=== PATIENT | female | born 1940 | race Caucasian/White ===

== ENCOUNTER → 2016-11-24 | Outpatient (CLI) | payer OTHER ==
[~2016-11-24] MED LIST: PROTONIX40 MG PO; ZOFRAN ODT8 MG PO
[2016-11-24 19:56] LABS: BASO # 0.1 10*3/uL (0.0-0.1); BASO % 0.6 % (0.0-1.0); EOS # 0.3 10*3/uL (0.0-0.4); EOS % 3.5 % (1.0-4.0); HEMATOCRIT 41.5 % (37.0-47.0); HEMOGLOBIN 13.4 g/dl (12.0-16.0); LYMPH # 3.4 10*3/uL (1.3-4.4); LYMPH % 38.5 % (27.0-41.0); MEAN CELL VOLUME 91.4 fl (81.0-99.0); MEAN CORPUSCULAR HGB 29.5 pg (27.0-31.0); MEAN CORPUSCULAR HGB CONC 32.3 g/dl (33.0-37.0); MEAN PLATELET VOLUME 9.3 fl (9.6-12.3); MONO # 0.7 10*3/uL (0.1-1.0); MONO % 7.4 % (3.0-9.0); NEUT # 4.4 10*3/uL (2.3-7.9); NEUT % 49.7 % (47.0-73.0); PLATELET COUNT AUTOMATED 285 10*3/uL (130-400); RED BLOOD COUNT 4.54 10*6/uL (4.10-5.10); RED CELL DISTRI WIDTH 13.7 % (0-14.5); WHITE BLOOD COUNT 8.8 10*3/uL (4.8-10.8)
[2016-11-24 20:18] LABS: ALBUMIN 3.5 gm/dl (3.1-4.5); BILIRUBIN, TOTAL 0.3 mg/dl (0.2-1.0); FREE T4 0.71 ng/dl (0.76-1.46); POTASSIUM 4.2 mmol/L (3.5-5.1); TOTAL PROTEIN 6.5 gm/dL (6.4-8.2)
[2016-11-24 20:24] LABS: THYROID STIM HORMONE (HS) 3.19 uIU/ml (0.358-4.75)
== END | disposition home or self-care (01) ==
LOC: LAB 18:52 → US 18:52
PROVIDERS: Internal Medicine
DX: R60.0 Localized edema (principal); E55.9 Vitamin D deficiency, unspecified; E03.9 Hypothyroidism, unspecified

== ENCOUNTER → 2016-12-07 | Outpatient (CLI) | payer MEDICARE, OTHER | END | disposition home or self-care (01) | LOC: CARD 07:30 | DX: I35.1 Nonrheumatic aortic (valve) insufficiency (principal); I34.0 Nonrheumatic mitral (valve) insufficiency; I07.1 Rheumatic tricuspid insufficiency; I51.7 Cardiomegaly; R60.0 Localized edema ==

== ENCOUNTER → 2017-03-10 | Outpatient (CLI) | payer OTHER | END | disposition home or self-care (01) | LOC: LAB 12:05 | PROVIDERS: Thoracic Surgery (Cardiothoracic Vascular Surgery) | DX: I71.2 Thoracic aortic aneurysm, without rupture (principal) ==

== ENCOUNTER → 2017-03-22 | Outpatient (CLI) | payer OTHER ==
[2017-03-22 12:14] LABS: VITAMIN D, 25-HYDROXY 38.5 ng/mL (30-100)
== END | disposition home or self-care (01) ==
LOC: LAB 10:59
PROVIDERS: Psychiatry & Neurology Neurology
DX: E55.9 Vitamin D deficiency, unspecified (principal)

== ENCOUNTER → 2017-05-19 | Outpatient (CLI) | payer OTHER ==
[2017-05-19 12:45] LABS: BASO # 0.1 10*3/uL (0.0-0.1); BASO % 0.6 % (0.0-1.0); EOS # 0.1 10*3/uL (0.0-0.4); EOS % 1.3 % (1.0-4.0); HEMATOCRIT 41.6 % (37.0-47.0); HEMOGLOBIN 13.2 g/dl (12.0-16.0); MEAN CELL VOLUME 93.5 fl (81.0-99.0); MEAN CORPUSCULAR HGB 29.7 pg (27.0-31.0); MEAN CORPUSCULAR HGB CONC 31.7 g/dl (33.0-37.0); MEAN PLATELET VOLUME 9.4 fl (9.6-12.3); MONO # 0.6 10*3/uL (0.1-1.0); MONO % 6.9 % (3.0-9.0); NEUT # 5.2 10*3/uL (2.3-7.9); NEUT % 57.9 % (47.0-73.0); PLATELET COUNT AUTOMATED 274 10*3/uL (130-400); RED BLOOD COUNT 4.45 10*6/uL (4.10-5.10); RED CELL DISTRI WIDTH 13.4 % (0-14.5); WHITE BLOOD COUNT 9.1 10*3/uL (4.8-10.8)
[2017-05-19 13:25] LABS: ALBUMIN 3.4 gm/dl (3.1-4.5); ALKALINE PHOSPHATASE 73 U/L (45-117); BUN 21 mg/dl (7-24); CHLORIDE 106 mmol/L (98-107); CHOLESTEROL 195 mg/dL (<200); CREATININE 1.31 mg/dL (0.55-1.02); FREE T4 1.44 ng/dl (0.76-1.46); HDL CHOLESTEROL 49 mg/dl (40-60); LDL CHOLESTEROL 116 mg/dL (9-159); POTASSIUM 4.5 mmol/L (3.5-5.1); SGOT/AST 12 IU/L (3-35); SODIUM 141 mmol/L (136-145); TOTAL PROTEIN 6.5 gm/dL (6.4-8.2); TRIGLYCERIDES 148 mg/dl (<150); VLDL CHOLESTEROL 30 mg/dL (6-40)
[2017-05-19 13:29] LABS: SGPT/ALT < 6 U/L (12-78); THYROID STIM HORMONE (HS) 0.178 uIU/ml (0.358-4.75)
[2017-05-19 13:53] LABS: VITAMIN D, 25-HYDROXY 38.7 ng/mL (30-100)
== END | disposition home or self-care (01) ==
LOC: LAB 12:21
PROVIDERS: Internal Medicine
DX: I10 Essential (primary) hypertension (principal); E03.9 Hypothyroidism, unspecified; E55.9 Vitamin D deficiency, unspecified; E53.8 Deficiency of other specified B group vitamins

== ENCOUNTER → 2017-05-24 | Outpatient (CLI) | payer OTHER | END | disposition home or self-care (01) | LOC: US 13:28 | DX: M47.894 Other spondylosis, thoracic region (principal); R60.0 Localized edema; I50.32 Chronic diastolic (congestive) heart failure ==

== ENCOUNTER → 2017-11-08 | Outpatient (CLI) | payer OTHER ==
[2017-11-08 14:45] LABS: BASO # 0.1 10*3/uL (0.0-0.1); BASO % 0.3 % (0.0-1.0); EOS % 0.1 % (1.0-4.0); HEMOGLOBIN 14.6 g/dl (12.0-16.0); LYMPH # 2.2 10*3/uL (1.3-4.4); LYMPH % 14.2 % (27.0-41.0); MEAN CELL VOLUME 91.8 fl (81.0-99.0); MEAN CORPUSCULAR HGB 29.8 pg (27.0-31.0); MEAN CORPUSCULAR HGB CONC 32.4 g/dl (33.0-37.0); MEAN PLATELET VOLUME 9.7 fl (9.6-12.3); MONO # 0.7 10*3/uL (0.1-1.0); MONO % 4.6 % (3.0-9.0); NEUT # 12.2 10*3/uL (2.3-7.9); NEUT % 79.6 % (47.0-73.0); PLATELET COUNT AUTOMATED 330 10*3/uL (130-400); RED CELL DISTRI WIDTH 13.7 % (0-14.5); WHITE BLOOD COUNT 15.3 10*3/uL (4.8-10.8)
[2017-11-08 15:04] LABS: ALBUMIN 3.5 gm/dl (3.1-4.5); ALKALINE PHOSPHATASE 73 U/L (45-117); BUN 28 mg/dl (7-24); CHLORIDE 104 mmol/L (98-107); CHOLESTEROL 183 mg/dL (<200); CREATININE 1.24 mg/dL (0.55-1.02); HDL CHOLESTEROL 54 mg/dl (40-60); LDL CHOLESTEROL 100 mg/dL (9-159); POTASSIUM 4.5 mmol/L (3.5-5.1); SGOT/AST 6 IU/L (3-35); SODIUM 139 mmol/L (136-145); TOTAL PROTEIN 6.8 gm/dL (6.4-8.2); TRIGLYCERIDES 144 mg/dl (<150); VLDL CHOLESTEROL 29 mg/dL (6-40)
[2017-11-08 15:05] LABS: SGPT/ALT < 6 U/L (12-78)
[2017-11-08 15:11] LABS: VITAMIN D, 25-HYDROXY 34.7 ng/mL (30-100)
== END | disposition home or self-care (01) ==
LOC: LAB 14:04
PROVIDERS: Internal Medicine; Physician Assistant
DX: I10 Essential (primary) hypertension (principal); E55.9 Vitamin D deficiency, unspecified; E03.9 Hypothyroidism, unspecified; E53.8 Deficiency of other specified B group vitamins

== ENCOUNTER → 2017-12-08 | Outpatient (CLI) | payer OTHER ==
[2017-12-08 12:26] LABS: BASO # 0.1 10*3/uL (0.0-0.1); BASO % 0.6 % (0.0-1.0); EOS # 0.1 10*3/uL (0.0-0.4); EOS % 0.9 % (1.0-4.0); HEMATOCRIT 46.4 % (37.0-47.0); LYMPH % 28.6 % (27.0-41.0); MEAN CELL VOLUME 92.1 fl (81.0-99.0); MEAN CORPUSCULAR HGB 29.8 pg (27.0-31.0); MEAN CORPUSCULAR HGB CONC 32.3 g/dl (33.0-37.0); MEAN PLATELET VOLUME 9.3 fl (9.6-12.3); MONO # 0.8 10*3/uL (0.1-1.0); MONO % 7.1 % (3.0-9.0); NEUT # 6.6 10*3/uL (2.3-7.9); NEUT % 62.2 % (47.0-73.0); PLATELET COUNT AUTOMATED 334 10*3/uL (130-400); RED BLOOD COUNT 5.04 10*6/uL (4.10-5.10); RED CELL DISTRI WIDTH 13.9 % (0-14.5); WHITE BLOOD COUNT 10.5 10*3/uL (4.8-10.8)
== END | disposition home or self-care (01) ==
LOC: LAB 11:53
PROVIDERS: Internal Medicine
DX: I50.32 Chronic diastolic (congestive) heart failure (principal)

== ENCOUNTER 2018-01-01 16:30 | Inpatient (IN) | payer OTHER ==
[~2018-01-01] VITALS: Ht 160 cm; Wt 75.0 kg
[2018-01-01 16:30] VITALS: BP 161/65
[2018-01-01 16:59] LABS: BASO % 0.5 % (0.0-1.0); EOS % 0.2 % (1.0-4.0); HEMATOCRIT 46.3 % (37.0-47.0); LYMPH # 1.8 10*3/uL (1.3-4.4); LYMPH % 26.9 % (27.0-41.0); MEAN CELL VOLUME 91.7 fl (81.0-99.0); MEAN CORPUSCULAR HGB 29.7 pg (27.0-31.0); MEAN CORPUSCULAR HGB CONC 32.4 g/dl (33.0-37.0); MEAN PLATELET VOLUME 9.4 fl (9.6-12.3); MONO # 0.6 10*3/uL (0.1-1.0); MONO % 9.6 % (3.0-9.0); NEUT # 4.1 10*3/uL (2.3-7.9); PLATELET COUNT AUTOMATED 280 10*3/uL (130-400); RED BLOOD COUNT 5.05 10*6/uL (4.10-5.10); RED CELL DISTRI WIDTH 13.7 % (0-14.5); WHITE BLOOD COUNT 6.6 10*3/uL (4.8-10.8)
[2018-01-01 17:03] LABS: ACT PARTIAL THROMBO TIME 22.3 SECONDS (20.8-31.5)
[2018-01-01 17:12] LABS: ALBUMIN 3.3 gm/dl (3.1-4.5); ALKALINE PHOSPHATASE 69 U/L (45-117); BUN 15 mg/dl (7-24); CHLORIDE 104 mmol/L (98-107); POTASSIUM 4.3 mmol/L (3.5-5.1); SGOT/AST 8 IU/L (3-35); SGPT/ALT 8 U/L (12-78); SODIUM 140 mmol/L (136-145); TOTAL PROTEIN 6.9 gm/dL (6.4-8.2)
[2018-01-01 17:14] LABS: TROPONIN I < 0.015 ng/ml (<0.045)
[2018-01-01 18:25] VITALS: BP 170/80
[2018-01-01 18:45] VITALS: BP 177/69
[2018-01-01 18:58] LABS: BILIRUBIN NEGATIVE (NEGATIVE); BLOOD TRACE-LYSED (NEGATIVE); CLARITY SL CLOUDY (CLEAR); COLOR YELLOW (YELLOW); GLUCOSE NEGATIVE (NEGATIVE); KETONE TRACE (NEGATIVE); LEUKO ESTERASE TRACE (NEGATIVE); NITRITE POSITIVE (NEGATIVE); PH 5.5 (5.0-9.0); SPECIFIC GRAVITY 1.025 (1.005-1.030); UROBILINOGEN 0.2 E.U./dl (0.2-1.0)
[2018-01-01 19:14] LABS: BACTERIA 4+; HYALINE CAST 21-30
[2018-01-01] MEDS ORDERED: VESICARE10 MG PO (19:55)
[2018-01-01] MEDS ORDERED: SINEMET 25-1001 EACH PO (19:56)
[2018-01-01] MEDS ORDERED: ZANAFLEX4 M1 PO (19:57)
[2018-01-01] MEDS ORDERED: VITAMIN D31000 UNI1 PO (19:58)
[2018-01-01] MEDS ORDERED: ARICEPT10 M1 PO (19:59)
[2018-01-01] MEDS ORDERED: ZIAC 5-6.25 MG1 EACH PO (20:00)
[2018-01-01] MEDS ORDERED: PROTONIX40 MG PO (20:01)
[2018-01-01] MEDS ORDERED: CELEBREX100 MG PO (20:03)
[2018-01-01] MEDS ORDERED: LASIX40 MG PO (20:04)
[2018-01-01] MEDS ORDERED: CORTISPORIN OP7.5 ML OPH (20:05)
[2018-01-01] MEDS ORDERED: B121000 MCG/1 IM (20:06)
[2018-01-01] MEDS ORDERED: NEURONTIN600 MG PO (20:07)
[2018-01-01] MEDS ORDERED: ATIVAN0.5 MG PO (20:07)
[2018-01-01] MEDS ORDERED: OXYBUTYNIN5 MG PO (20:07)
[2018-01-01] MEDS ORDERED: REMERON15 M2 PO (20:10)
[2018-01-01] MEDS ORDERED: Synthroid,Levo50 MCG PO (20:10)
[2018-01-01] MEDS ORDERED: SINEMET CR 50-1 EACH PO (20:50)
[2018-01-01] MEDS ORDERED: MELATONIN5 M7 PO (20:51)
[2018-01-01 21:00] VITALS: BP 133/64
[2018-01-02] VITALS: BP 150/83
[2018-01-02 04:00] VITALS: BP 122/54
[2018-01-02 07:03] LABS: BASO % 0.4 % (0.0-1.0); EOS % 0.4 % (1.0-4.0); HEMATOCRIT 40.3 % (37.0-47.0); LYMPH % 41.8 % (27.0-41.0); MEAN CELL VOLUME 92.2 fl (81.0-99.0); MEAN CORPUSCULAR HGB 29.3 pg (27.0-31.0); MEAN CORPUSCULAR HGB CONC 31.8 g/dl (33.0-37.0); MEAN PLATELET VOLUME 9.3 fl (9.6-12.3); MONO # 0.6 10*3/uL (0.1-1.0); MONO % 12.3 % (3.0-9.0); NEUT # 2.2 10*3/uL (2.3-7.9); NEUT % 44.7 % (47.0-73.0); PLATELET COUNT AUTOMATED 225 10*3/uL (130-400); RED BLOOD COUNT 4.37 10*6/uL (4.10-5.10); RED CELL DISTRI WIDTH 13.6 % (0-14.5); WHITE BLOOD COUNT 4.9 10*3/uL (4.8-10.8)
[2018-01-02 07:07] LABS: HEMOGLOBIN 12.8 g/dl (12.0-16.0)
[2018-01-02 07:36] LABS: ACT PARTIAL THROMBO TIME 23.5 SECONDS (20.8-31.5)
[2018-01-02 07:39] LABS: ALBUMIN 2.6 gm/dl (3.1-4.5); BUN 13 mg/dl (7-24); CHLORIDE 107 mmol/L (98-107); POTASSIUM 3.7 mmol/L (3.5-5.1); SODIUM 142 mmol/L (136-145)
[2018-01-02 07:42] LABS: ALKALINE PHOSPHATASE 54 U/L (45-117); PHOSPHOROUS 2.7 mg/dL (2.5-4.9); SGOT/AST 9 IU/L (3-35); SGPT/ALT 8 U/L (12-78); TOTAL PROTEIN 5.4 gm/dL (6.4-8.2)
[2018-01-02 08:00] VITALS: BP 131/47
[2018-01-02 12:00] VITALS: BP 133/46
[2018-01-02 16:00] VITALS: BP 151/51
[2018-01-02 20:00] VITALS: BP 149/63
[2018-01-03] VITALS (7 sets, daily range): BP systolic 164–189; BP diastolic 41–68
[2018-01-03 06:46] LABS: BASO % 0.2 % (0.0-1.0); EOS # 0.1 10*3/uL (0.0-0.4); EOS % 0.9 % (1.0-4.0); HEMATOCRIT 39.9 % (37.0-47.0); HEMOGLOBIN 12.5 g/dl (12.0-16.0); LYMPH # 2.6 10*3/uL (1.3-4.4); LYMPH % 49.3 % (27.0-41.0); MEAN CELL VOLUME 92.6 fl (81.0-99.0); MEAN CORPUSCULAR HGB CONC 31.3 g/dl (33.0-37.0); MEAN PLATELET VOLUME 9.7 fl (9.6-12.3); MONO # 0.5 10*3/uL (0.1-1.0); MONO % 10.1 % (3.0-9.0); NEUT # 2.1 10*3/uL (2.3-7.9); NEUT % 38.7 % (47.0-73.0); PLATELET COUNT AUTOMATED 220 10*3/uL (130-400); RED BLOOD COUNT 4.31 10*6/uL (4.10-5.10); RED CELL DISTRI WIDTH 13.8 % (0-14.5); WHITE BLOOD COUNT 5.3 10*3/uL (4.8-10.8)
[2018-01-03 06:50] LABS: BUN 12 mg/dl (7-24); CHLORIDE 109 mmol/L (98-107); CREATININE 0.89 mg/dL (0.55-1.02); POTASSIUM 4.1 mmol/L (3.5-5.1); SODIUM 142 mmol/L (136-145)
[2018-01-04 00:59] VITALS: BP 140/64
[2018-01-04 06:25] LABS: BASO % 0.4 % (0.0-1.0); EOS # 0.1 10*3/uL (0.0-0.4); EOS % 1.2 % (1.0-4.0); HEMATOCRIT 40.4 % (37.0-47.0); HEMOGLOBIN 12.9 g/dl (12.0-16.0); LYMPH % 53.7 % (27.0-41.0); MEAN CELL VOLUME 90.8 fl (81.0-99.0); MEAN CORPUSCULAR HGB CONC 31.9 g/dl (33.0-37.0); MEAN PLATELET VOLUME 9.3 fl (9.6-12.3); MONO # 0.5 10*3/uL (0.1-1.0); MONO % 8.7 % (3.0-9.0); NEUT % 35.5 % (47.0-73.0); PLATELET COUNT AUTOMATED 236 10*3/uL (130-400); RED BLOOD COUNT 4.45 10*6/uL (4.10-5.10); RED CELL DISTRI WIDTH 13.5 % (0-14.5); WHITE BLOOD COUNT 5.6 10*3/uL (4.8-10.8)
[2018-01-04 06:50] LABS: BUN 10 mg/dl (7-24); CHLORIDE 107 mmol/L (98-107); CREATININE 0.88 mg/dL (0.55-1.02); POTASSIUM 3.7 mmol/L (3.5-5.1); SODIUM 141 mmol/L (136-145)
[2018-01-04 08:00] VITALS: BP 170/58
[2018-01-04 12:00] VITALS: BP 152/66
[2018-01-04 16:00] VITALS: BP 176/50
[2018-01-04 20:00] VITALS: BP 165/49
[2018-01-05 00:02] VITALS: BP 143/43
[2018-01-05 06:57] LABS: BASO % 0.4 % (0.0-1.0); EOS # 0.1 10*3/uL (0.0-0.4); EOS % 1.6 % (1.0-4.0); HEMOGLOBIN 13.1 g/dl (12.0-16.0); LYMPH # 2.9 10*3/uL (1.3-4.4); MEAN CELL VOLUME 91.9 fl (81.0-99.0); MEAN CORPUSCULAR HGB 29.4 pg (27.0-31.0); MEAN PLATELET VOLUME 9.6 fl (9.6-12.3); MONO # 0.4 10*3/uL (0.1-1.0); MONO % 6.6 % (3.0-9.0); NEUT # 2.2 10*3/uL (2.3-7.9); NEUT % 38.9 % (47.0-73.0); PLATELET COUNT AUTOMATED 263 10*3/uL (130-400); RED BLOOD COUNT 4.46 10*6/uL (4.10-5.10); RED CELL DISTRI WIDTH 13.4 % (0-14.5); WHITE BLOOD COUNT 5.6 10*3/uL (4.8-10.8)
[2018-01-05 07:30] LABS: BUN 14 mg/dl (7-24); CHLORIDE 108 mmol/L (98-107); CREATININE 0.86 mg/dL (0.55-1.02); POTASSIUM 3.7 mmol/L (3.5-5.1); SODIUM 142 mmol/L (136-145)
[2018-01-05] MEDS ORDERED: Synthroid,Levo50 MCG PO (07:54)
[2018-01-05 08:00] VITALS: BP 120/62
[2018-01-05 12:00] VITALS: BP 168/48
[2018-01-05 16:00] VITALS: BP 117/58
[2018-01-05 20:14] VITALS: BP 141/65
[2018-01-06] VITALS: BP 109/54
[2018-01-06 08:00] VITALS: BP 170/54
[2018-01-06 12:00] VITALS: BP 150/56
[2018-01-06 16:00] VITALS: BP 143/84
[2018-01-06 20:00] VITALS: BP 154/49
[2018-01-07] VITALS: BP 153/58
[2018-01-07 06:35] LABS: BASO % 0.4 % (0.0-1.0); EOS # 0.2 10*3/uL (0.0-0.4); EOS % 2.3 % (1.0-4.0); HEMATOCRIT 40.7 % (37.0-47.0); HEMOGLOBIN 12.8 g/dl (12.0-16.0); LYMPH # 3.1 10*3/uL (1.3-4.4); LYMPH % 43.8 % (27.0-41.0); MEAN CELL VOLUME 91.7 fl (81.0-99.0); MEAN CORPUSCULAR HGB 28.8 pg (27.0-31.0); MEAN CORPUSCULAR HGB CONC 31.4 g/dl (33.0-37.0); MEAN PLATELET VOLUME 9.6 fl (9.6-12.3); MONO # 0.5 10*3/uL (0.1-1.0); MONO % 7.4 % (3.0-9.0); NEUT # 3.2 10*3/uL (2.3-7.9); NEUT % 45.7 % (47.0-73.0); PLATELET COUNT AUTOMATED 312 10*3/uL (130-400); RED BLOOD COUNT 4.44 10*6/uL (4.10-5.10); RED CELL DISTRI WIDTH 13.5 % (0-14.5)
[2018-01-07 07:04] LABS: ALBUMIN 2.6 gm/dl (3.1-4.5); ALKALINE PHOSPHATASE 54 U/L (45-117); BUN 13 mg/dl (7-24); CHLORIDE 109 mmol/L (98-107); CREATININE 0.79 mg/dL (0.55-1.02); SGOT/AST 9 IU/L (3-35); SODIUM 142 mmol/L (136-145); TOTAL PROTEIN 5.2 gm/dL (6.4-8.2)
[2018-01-07 07:05] LABS: SGPT/ALT < 6 U/L (12-78)
[2018-01-07 08:00] VITALS: BP 169/52
[2018-01-07 12:00] VITALS: BP 154/58
[2018-01-07 16:00] VITALS: BP 186/64
[2018-01-07 20:00] VITALS: BP 152/58
[2018-01-07 21:36] VITALS: BP 119/45
[2018-01-08] VITALS: BP 130/48
[2018-01-08 08:00] VITALS: BP 115/53
[2018-01-08 08:04] LABS: BASO % 0.3 % (0.0-1.0); EOS # 0.2 10*3/uL (0.0-0.4); EOS % 2.5 % (1.0-4.0); HEMATOCRIT 39.8 % (37.0-47.0); HEMOGLOBIN 12.9 g/dl (12.0-16.0); LYMPH # 3.4 10*3/uL (1.3-4.4); LYMPH % 38.9 % (27.0-41.0); MEAN CELL VOLUME 91.1 fl (81.0-99.0); MEAN CORPUSCULAR HGB 29.5 pg (27.0-31.0); MEAN CORPUSCULAR HGB CONC 32.4 g/dl (33.0-37.0); MEAN PLATELET VOLUME 9.6 fl (9.6-12.3); MONO # 0.6 10*3/uL (0.1-1.0); MONO % 7.3 % (3.0-9.0); NEUT # 4.4 10*3/uL (2.3-7.9); NEUT % 50.7 % (47.0-73.0); PLATELET COUNT AUTOMATED 330 10*3/uL (130-400); RED BLOOD COUNT 4.37 10*6/uL (4.10-5.10); RED CELL DISTRI WIDTH 13.3 % (0-14.5); WHITE BLOOD COUNT 8.6 10*3/uL (4.8-10.8)
[2018-01-08 08:22] LABS: ALBUMIN 2.7 gm/dl (3.1-4.5); ALKALINE PHOSPHATASE 60 U/L (45-117); BUN 12 mg/dl (7-24); CHLORIDE 107 mmol/L (98-107); POTASSIUM 4.2 mmol/L (3.5-5.1); SGOT/AST 10 IU/L (3-35); SODIUM 142 mmol/L (136-145); TOTAL PROTEIN 5.4 gm/dL (6.4-8.2)
[2018-01-08 08:23] LABS: SGPT/ALT < 6 U/L (12-78)
[2018-01-08] MEDS ORDERED: ATIVAN0.5 MG PO (12:22)
[2018-01-08] MEDS ORDERED: LISINOPRIL10 M1 PO (12:22)
[2018-01-08] MEDS ORDERED: ALL DAY ALLERGY10 MG PO (12:22)
[2018-01-08] MEDS ORDERED: HYDR25T PO (12:22)
== END 2018-01-08 14:41 | disposition other institution (70) | DRG 193 ==
LOC: ED 16:30 → 4E 18:08 → EDHOLD 18:08 → 4E 18:16
PROVIDERS: Emergency Medicine; Family Medicine; Nurse Practitioner Family
DX: J10.1 Influenza due to other identified influenza virus with other respiratory manifestations (principal); N17.0 Acute kidney failure with tubular necrosis; N39.0 Urinary tract infection, site not specified; I50.32 Chronic diastolic (congestive) heart failure; Z79.899 Other long term (current) drug therapy; R55 Syncope and collapse; I11.0 Hypertensive heart disease with heart failure; I71.2 Thoracic aortic aneurysm, without rupture; K58.9 Irritable bowel syndrome, unspecified; N18.3 Chronic kidney disease, stage 3 (moderate); R31.9 Hematuria, unspecified; D72.810 Lymphocytopenia; R73.9 Hyperglycemia, unspecified; G20 Parkinson's disease; E03.9 Hypothyroidism, unspecified; M15.0 Primary generalized (osteo)arthritis; K21.9 Gastro-esophageal reflux disease without esophagitis; M79.7 Fibromyalgia; J44.9 Chronic obstructive pulmonary disease, unspecified; E86.0 Dehydration; Z16.12 Extended spectrum beta lactamase (ESBL) resistance; B96.20 Unspecified Escherichia coli [E. coli] as the cause of diseases classified elsewhere; Z88.0 Allergy status to penicillin; Z88.2 Allergy status to sulfonamides; Z88.8 Allergy status to other drugs, medicaments and biological substances; Z88.6 Allergy status to analgesic agent; Z90.49 Acquired absence of other specified parts of digestive tract; Z90.710 Acquired absence of both cervix and uterus; Z98.51 Tubal ligation status; Z83.3 Family history of diabetes mellitus; Z82.49 Family history of ischemic heart disease and other diseases of the circulatory system; Z80.0 Family history of malignant neoplasm of digestive organs

== ENCOUNTER 2018-01-29 00:47 | Emergency (ER) | payer OTHER ==
[~2018-01-29] VITALS: Ht 160 cm; Wt 77.1 kg
[~2018-01-29 00:47] MED LIST changes: +ALL DAY ALLERGY10 MG PO; +ARICEPT10 M1 PO; +ATIVAN0.5 MG PO; +B121000 MCG/1 IM; +CELEBREX100 MG PO; +CORTISPORIN OP7.5 ML OPH; +HYDR25T PO; +LASIX40 MG PO; +LISINOPRIL10 M1 PO; +MELATONIN5 M7 PO; +NEURONTIN600 MG PO; +OXYBUTYNIN5 MG PO; +REMERON15 M2 PO; +SINEMET 25-1001 EACH PO; +SINEMET CR 50-1 EACH PO; +Synthroid,Levo50 MCG PO; +VESICARE10 MG PO; +VITAMIN D31000 UNI1 PO; +ZANAFLEX4 M1 PO; +ZIAC 5-6.25 MG1 EACH PO
[2018-01-29 01:27] LABS: BASO % 0.5 % (0.0-1.0); EOS # 0.2 10*3/uL (0.0-0.4); HEMATOCRIT 41.8 % (37.0-47.0); HEMOGLOBIN 13.2 g/dl (12.0-16.0); LYMPH # 2.5 10*3/uL (1.3-4.4); LYMPH % 30.3 % (27.0-41.0); MEAN CELL VOLUME 92.3 fl (81.0-99.0); MEAN CORPUSCULAR HGB 29.1 pg (27.0-31.0); MEAN CORPUSCULAR HGB CONC 31.6 g/dl (33.0-37.0); MEAN PLATELET VOLUME 9.4 fl (9.6-12.3); MONO # 0.7 10*3/uL (0.1-1.0); NEUT # 4.9 10*3/uL (2.3-7.9); PLATELET COUNT AUTOMATED 272 10*3/uL (130-400); RED BLOOD COUNT 4.53 10*6/uL (4.10-5.10); RED CELL DISTRI WIDTH 13.6 % (0-14.5); WHITE BLOOD COUNT 8.3 10*3/uL (4.8-10.8)
[2018-01-29 01:40] LABS: ACT PARTIAL THROMBO TIME 22.6 SECONDS (20.8-31.5)
[2018-01-29 01:44] LABS: ALBUMIN 3.1 gm/dl (3.1-4.5); ALKALINE PHOSPHATASE 69 U/L (45-117); BUN 12 mg/dl (7-24); CHLORIDE 107 mmol/L (98-107); CREATININE 1.35 mg/dL (0.55-1.02); POTASSIUM 4.5 mmol/L (3.5-5.1); SGOT/AST 8 IU/L (3-35); SGPT/ALT 6 U/L (12-78); SODIUM 143 mmol/L (136-145); TOTAL PROTEIN 6.1 gm/dL (6.4-8.2)
[2018-01-29 01:45] LABS: TROPONIN I < 0.015 ng/ml (<0.045)
[2018-01-29 03:08] LABS: BILIRUBIN NEGATIVE (NEGATIVE); BLOOD NEGATIVE (NEGATIVE); CLARITY SL CLOUDY (CLEAR); COLOR YELLOW (YELLOW); GLUCOSE NEGATIVE (NEGATIVE); KETONE TRACE (NEGATIVE); LEUKO ESTERASE 1+ (NEGATIVE); NITRITE NEGATIVE (NEGATIVE); SPECIFIC GRAVITY 1.025 (1.005-1.030); UROBILINOGEN 0.2 E.U./dl (0.2-1.0)
[2018-01-29 03:09] VITALS: BP 146/53
[2018-01-29 03:34] LABS: BACTERIA 2+; EPITHELIAL CELLS 40-45
[2018-01-29 03:35] LABS: WBC 21-30 wbc/hpf (0-5)
[2018-01-29] MEDS ORDERED: MACROBID100 M1 PO (04:11)
== END 2018-01-29 04:46 | disposition home or self-care (01) ==
LOC: ED 00:47
PROVIDERS: Physician Assistant
DX: S01.111A Laceration without foreign body of right eyelid and periocular area, initial encounter (principal); S01.81XA Laceration without foreign body of other part of head, initial encounter; S30.0XXA Contusion of lower back and pelvis, initial encounter; S09.90XA Unspecified injury of head, initial encounter; I13.0 Hypertensive heart and chronic kidney disease with heart failure and stage 1 through stage 4 chronic kidney disease, or unspecified chronic kidney disease; N18.3 Chronic kidney disease, stage 3 (moderate); I50.30 Unspecified diastolic (congestive) heart failure; K21.9 Gastro-esophageal reflux disease without esophagitis; Z90.49 Acquired absence of other specified parts of digestive tract; Z98.890 Other specified postprocedural states; Z96.651 Presence of right artificial knee joint; Z79.899 Other long term (current) drug therapy; Z88.0 Allergy status to penicillin; Z88.2 Allergy status to sulfonamides; Z88.5 Allergy status to narcotic agent; Z88.6 Allergy status to analgesic agent; W06.XXXA Fall from bed, initial encounter; Y93.89 Activity, other specified; Y92.89 Other specified places as the place of occurrence of the external cause; Y99.9 Unspecified external cause status

== ENCOUNTER → 2018-03-23 | Outpatient (CLI) | payer OTHER ==
[~2018-03-23] MED LIST changes: +MACROBID100 M1 PO
[2018-03-23 12:45] LABS: BASO % 0.3 % (0.0-1.0); EOS # 0.1 10*3/uL (0.0-0.4); HEMATOCRIT 46.9 % (37.0-47.0); HEMOGLOBIN 14.7 g/dl (12.0-16.0); LYMPH # 2.6 10*3/uL (1.3-4.4); LYMPH % 27.3 % (27.0-41.0); MEAN CELL VOLUME 93.6 fl (81.0-99.0); MEAN CORPUSCULAR HGB 29.3 pg (27.0-31.0); MEAN CORPUSCULAR HGB CONC 31.3 g/dl (33.0-37.0); MONO # 0.6 10*3/uL (0.1-1.0); MONO % 6.7 % (3.0-9.0); NEUT # 6.2 10*3/uL (2.3-7.9); NEUT % 64.4 % (47.0-73.0); PLATELET COUNT AUTOMATED 339 10*3/uL (130-400); RED BLOOD COUNT 5.01 10*6/uL (4.10-5.10); RED CELL DISTRI WIDTH 13.7 % (0-14.5); WHITE BLOOD COUNT 9.6 10*3/uL (4.8-10.8)
[2018-03-23 12:57] LABS: ALBUMIN 3.7 gm/dl (3.1-4.5); CREATININE 1.29 mg/dL (0.55-1.02); POTASSIUM 4.4 mmol/L (3.5-5.1); TOTAL PROTEIN 6.9 gm/dL (6.4-8.2)
== END | disposition home or self-care (01) ==
LOC: LAB 11:55
PROVIDERS: Physician Assistant
DX: E53.8 Deficiency of other specified B group vitamins (principal); E55.9 Vitamin D deficiency, unspecified; R53.83 Other fatigue

== ENCOUNTER → 2019-03-12 | Outpatient (CLI) | payer OTHER ==
[~2019-03-12] MED LIST changes: +ACYCLOVIR800 MG PO; +DOXYCYCLINE100 M3 PO; +ESTRADIOL42.5 GM V; +FLAGYL500 MG PO; +LOSARTAN POTASS25 M1 PO; +NEURONTIN300 MG PO; +Sinemet Cr 50/21 TAB PO; +TEMAZEPAM7.5 MG PO; +ZANTAC 150150 MG PO
== END | disposition home or self-care (01) ==
LOC: LAB 12:28
DX: N39.0 Urinary tract infection, site not specified (principal)

== ENCOUNTER → 2019-07-11 | Outpatient (CLI) | payer OTHER | END | disposition home or self-care (01) | LOC: RAD 17:08 | DX: R09.89 Other specified symptoms and signs involving the circulatory and respiratory systems (principal); R06.02 Shortness of breath ==

== ENCOUNTER → 2019-07-19 | Outpatient (CLI) | payer OTHER ==
[2019-07-19 19:15] LABS: BILIRUBIN 2+ (NEGATIVE); BLOOD NEGATIVE (NEGATIVE); CLARITY SL CLOUDY (CLEAR); COLOR YELLOW (YELLOW); GLUCOSE NEGATIVE (NEGATIVE); KETONE TRACE (NEGATIVE); LEUKO ESTERASE NEGATIVE (NEGATIVE); NITRITE NEGATIVE (NEGATIVE); PH 5.5 (5.0-9.0); SPECIFIC GRAVITY >= 1.030 (1.005-1.030); UROBILINOGEN 0.2 E.U./dl (0.2-1.0)
[2019-07-19 19:34] LABS: CALCIUM OXALATE CRYSTALS 2+
[2019-07-19 19:35] LABS: MUCOUS 1+
== END | disposition home or self-care (01) ==
LOC: LAB 18:17
PROVIDERS: Family Medicine
DX: R30.0 Dysuria (principal)

== ENCOUNTER 2019-08-03 19:43 | Inpatient (IN) | payer OTHER ==
[~2019-08-03] VITALS: Ht 157.5 cm; Wt 68.3 kg
[2019-08-03 19:44] VITALS: BP 150/74
[2019-08-03 20:31] LABS: BASO % 0.5 % (0.0-1.0); EOS # 0.2 10*3/uL (0.0-0.4); EOS % 2.5 % (1.0-4.0); HEMATOCRIT 42.2 % (37.0-47.0); HEMOGLOBIN 13.7 g/dl (12.0-16.0); LYMPH # 2.8 10*3/uL (1.3-4.4); LYMPH % 35.2 % (27.0-41.0); MEAN CELL VOLUME 96.8 fl (81.0-99.0); MEAN CORPUSCULAR HGB 31.4 pg (27.0-31.0); MEAN CORPUSCULAR HGB CONC 32.5 g/dl (33.0-37.0); MEAN PLATELET VOLUME 9.7 fl (9.6-12.3); MONO # 0.7 10*3/uL (0.1-1.0); MONO % 8.4 % (3.0-9.0); NEUT # 4.2 10*3/uL (2.3-7.9); PLATELET COUNT AUTOMATED 337 10*3/uL (130-400); RED BLOOD COUNT 4.36 10*6/uL (4.10-5.10); RED CELL DISTRI WIDTH 13.6 % (0-14.5); WHITE BLOOD COUNT 7.9 10*3/uL (4.8-10.8)
[2019-08-03 20:46] LABS: ACT PARTIAL THROMBO TIME 25.4 SECONDS (20.0-32.1); INTERNATIONAL NORM RATIO 0.9 (2.0-3.5)
[2019-08-03] MEDS ORDERED: DULOXETINE HCL20 MG PO (20:47)
[2019-08-03] MEDS ORDERED: ONDANSETRON HYDR4 MG PO (20:48)
--- NOTE | 2019-08-03 20:48 | NUR ---
PT HAS BEDSIDE TOILET. SHE STATES THAT SHE DOES NOT HAVE TO URINATE AT THIS TIME.
[2019-08-03] MEDS ORDERED: ASPIRIN CHEWABL81 MG PO (20:53)
[2019-08-03] MEDS ORDERED: BACLOFEN5 MG PO (20:55)
[2019-08-03 21:01] LABS: ALBUMIN 2.9 gm/dl (3.1-4.5); ALKALINE PHOSPHATASE 55 U/L (45-117); BUN 13 mg/dl (7-24); CHLORIDE 105 mmol/L (98-107); CREATININE 0.97 mg/dL (0.55-1.02); LIPASE 401 U/L (73-393); POTASSIUM 3.8 mmol/L (3.5-5.1); SGOT/AST 10 IU/L (3-35); SODIUM 139 mmol/L (136-145)
[2019-08-03 21:03] LABS: SGPT/ALT < 6 U/L (12-78); TROPONIN I < 0.015 ng/ml (<0.045)
[2019-08-03 21:39] LABS: BILIRUBIN NEGATIVE (NEGATIVE); BLOOD NEGATIVE (NEGATIVE); CLARITY CLEAR (CLEAR); COLOR YELLOW (YELLOW); GLUCOSE NEGATIVE (NEGATIVE); KETONE NEGATIVE (NEGATIVE); LEUKO ESTERASE NEGATIVE (NEGATIVE); NITRITE NEGATIVE (NEGATIVE); UROBILINOGEN 0.2 E.U./dl (0.2-1.0)
[2019-08-03 21:40] VITALS: BP 178/65
--- NOTE | 2019-08-03 21:40 | NUR ---
PT PROVIDED BOXED LUNCH. RESTING IN BED WITH FAMILY AT BEDSIDE. NO WSIGNS OF ACUTE DISTRESS AT THIS TIME.
[2019-08-03 21:47] LABS: BACTERIA TRACE
--- NOTE | 2019-08-03 22:08 | NUR ---
PT UP TO BEDSIDE. NOW SHE IS TO CT.
[2019-08-03 22:58] VITALS: BP 172/80
[2019-08-04] VITALS (8 sets, daily range): BP systolic 126–189; BP diastolic 51–76
--- NOTE | 2019-08-04 00:30 | NUR ---
A 79, admitted to 5E, under the services of VIGNESH Moralez DO with a diagnosis of ANOREXIA.MOOD DISORDER. DEMENTIA. Chief complaint is MULTIPLE COMPLAINTS. Patient arrived via bed from ER. Initial assessment completed. Vital signs taken and recorded. VIGNESH MORALEZ DO notified of admission to the unit. Orders received. See assessment for past medical history, medications and allergies. Patient and/or family oriented to unit. [address] visitation policy reviewed. Clothing/patient valuable form completed. PT WOULD LIKE TO BE GIVEN INFLUENZA VACCINE DURING HER STAY. MULTIPLE SCABS TO LOWER EXTREMITIES, NO OPEN WOUNDS ON ADMISSION. EMANUEL PEARSON
[2019-08-04] MEDS ORDERED: OMEPRAZOLE MAGN20 MG PO (01:05)
--- NOTE | 2019-08-04 01:33 | NUR ---
DR MIRANDA NOTIFIED OF UPDATED MED REC AND MANUAL BP OF 170/60.
[2019-08-04 06:34] LABS: BASO % 0.5 % (0.0-1.0); EOS # 0.2 10*3/uL (0.0-0.4); EOS % 2.7 % (1.0-4.0); HEMATOCRIT 41.1 % (37.0-47.0); HEMOGLOBIN 13.4 g/dl (12.0-16.0); LYMPH # 2.9 10*3/uL (1.3-4.4); LYMPH % 33.1 % (27.0-41.0); MEAN CELL VOLUME 95.6 fl (81.0-99.0); MEAN CORPUSCULAR HGB 31.2 pg (27.0-31.0); MEAN CORPUSCULAR HGB CONC 32.6 g/dl (33.0-37.0); MEAN PLATELET VOLUME 9.8 fl (9.6-12.3); MONO # 0.7 10*3/uL (0.1-1.0); MONO % 7.8 % (3.0-9.0); NEUT # 4.9 10*3/uL (2.3-7.9); NEUT % 55.7 % (47.0-73.0); PLATELET COUNT AUTOMATED 320 10*3/uL (130-400); RED CELL DISTRI WIDTH 13.5 % (0-14.5); WHITE BLOOD COUNT 8.8 10*3/uL (4.8-10.8)
[2019-08-04 06:38] LABS: ALBUMIN 2.8 gm/dl (3.1-4.5); BUN 10 mg/dl (7-24); CHLORIDE 108 mmol/L (98-107); CHOLESTEROL 162 mg/dL (<200); CREATININE 0.85 mg/dL (0.55-1.02); HDL CHOLESTEROL 46 mg/dl (40-60); LDL CHOLESTEROL 94 mg/dL (9-159); PHOSPHOROUS 2.6 mg/dL (2.5-4.9); POTASSIUM 3.4 mmol/L (3.5-5.1); SGOT/AST 8 IU/L (3-35); SGPT/ALT 7 U/L (12-78); SODIUM 139 mmol/L (136-145); TOTAL PROTEIN 5.5 gm/dL (6.4-8.2); TRIGLYCERIDES 110 mg/dl (<150); VLDL CHOLESTEROL 22 mg/dL (6-40)
[2019-08-04 06:48] LABS: ALKALINE PHOSPHATASE 49 U/L (45-117)
[2019-08-04 08:05] LABS: VITAMIN D, 25-HYDROXY 51.7 ng/mL (30-100)
--- NOTE | 2019-08-04 08:41 | NUR ---
PT RESTING IN BED. NO DISTRESS NOTED. WILL MONITOR
--- NOTE | 2019-08-04 13:04 | NUR ---
PT MEDICATED WITH ZOFRAN FOR C/O NAUSEA. WILL MONITOR
--- NOTE | 2019-08-04 17:06 | NUR ---
ARIANA HELPED WILL MONITOR
--- NOTE | 2019-08-04 17:17 | NUR ---
DR YU CALLED AND NOTIFIED OF PT NAUSEA. AND BP
--- NOTE | 2019-08-04 19:39 | NUR ---
IN TO ASSESS PT AT THIS TIME. PT C/O CONTINUED NAUSEA, WEAKNESS, AND A HEADACHE. PT STATES THAT SHE BELIEVES THE HEADACHE WAS FROM HER BLOOD PRESSURE BEING SO HIGH THROUGHOUT THE DAY TODAY, THE LAST BP TAKEN PRIOR TO MY SHIFT WAS 180/60. BP AT THIS TIME IS 130/64 WITH A PULSE OF 78. METOPROLOL ADMINISTERED PRESCRIBED AT THIS TIME. WILL CONTINUE TO MONITOR THE PT AND REASSESS PRESSURE. PT REFUSING PAIN MEDICATION FOR THE HEADACHE. PT A&OX3. RESPIRATIONS EASY AND UNLABORED. BED ALARM ON. CANE AT BEDSIDE. PT ENCOURAGED TO USE CALL LIGHT BEFORE EXITING BED.
[2019-08-05] VITALS: BP 162/49
--- NOTE | 2019-08-05 03:19 | NUR ---
24 HOUR CHART CHECK COMPLETE.
[2019-08-05 08:00] VITALS: BP 143/53
--- NOTE | 2019-08-05 08:04 | NUR ---
PHYSICAL THERAPY Screen received as well at PT eval will follow, thank you Migdalia Olea PT
--- NOTE | 2019-08-05 08:18 | NUR ---
PT RESTING IN BED. NO DISTRESS NOTED. WILL MONITOR
--- NOTE | 2019-08-05 08:38 | NUR ---
Occupational therapy orders received and nursing screen received. Will follow up with patient for completion of OT evaluation. Thank you. Taryn Conrad, OTR/L
[2019-08-05 12:00] VITALS: BP 139/48
--- NOTE | 2019-08-05 14:08 | NUR ---
Occupational therapy orders received and chart reviewed. Patient was supine in bed upon arrival and was A&Ox3. Patient refusing an OT evaluation at this time stating, "I've done it before", "I know what you are going to have me do" and "I don't want occupational therapy." Patient educated on benefits of occupational therapy and OT asked questions about functional status including how she does with her cane for transfers and patient stated "I know what you'll have me do, no thank you." Patient orders to be discharged at this time. Thank you for the referral. Taryn Conrad, OTR/L
--- NOTE | 2019-08-05 15:07 | NUR ---
WATERWORKS OPERATOR spoke with the patient about SNF. Patient stated that she knows she is weak but does not know which facility she would like to go to. Patient asked this WATERWORKS OPERATOR to speak with her tomorrow about SNF placement so she could talk to family. Patient would require PRECERT for SNF placement. WATERWORKS OPERATOR notified Air Valve Mechanic Marta. -BETHANIE Byers
--- NOTE | 2019-08-05 15:51 | NUR ---
Core Mounter in to talk to patient. Patient states lives at HOME with ALONE. There are NO steps in the home. Physician: Danielle MAN [facility] [place] [facility] 5 DAYS A WEEK 3 HOURS A DAY Patient's level of ADLs: INDEPENDENT Patient has working utilities: YES DME: [facility] Follow-up physician's appointment after d/c: WILL BE MADE BY HOSPITALIST NURSE DIRECTOR ON DISCHARGE Does patient want to access PORTAL?: NO Discharge plan PT LIVES AT HOME ALONE WITH [facility] 5 DAYS A WEEK 3 HOURS A DAY. ORDER RECEIVED FOR [facility] BUT PT STATES SHE WILL HAVE TO THINK ABOUT IT AND WILL LET US KNOW. NOT OTHER NEEDS AT THIS TIME. WILL CONTINUE TO FOLLOW. STATES SHE WILL HAVE A RIDE HOME.. MIKEY AARON
[2019-08-05 16:00] VITALS: BP 180/48
--- NOTE | 2019-08-05 19:45 | NUR ---
24 HR chart check completed.
[2019-08-05 20:00] VITALS: BP 163/53
--- NOTE | 2019-08-05 21:00 | NUR ---
RESTING IN BED WITH NO ACUTE DISTRESS NOTED. RESPIRATIONS EASY. LUNGS DIMINISHED, CLEAR. PULSE OX 96% RA. +1 BLE EDEMA, TEDS PRESENT AT BEDSIDE BUT NOT IN USE. CALL LIGHT WITHIN REACH. NO VOICED COMPLAINTS. BED ALARM MAINTAINED FOR SAFETY
--- NOTE | 2019-08-05 23:49 | NUR ---
REQUESTED AND RECEIVED RESTORIL PER PRN ORDER TO ASSIST WITH SLEEP. WILL MONITOR FOR EFFECTIVENESS
[2019-08-06] VITALS: BP 149/52
--- NOTE | 2019-08-06 01:00 | NUR ---
MEDS EFFECTIVE. SLEEPING. RESPIRATIONS EASY. CALL LIGHT WITHIN REACH. BED ALARM MAINTAINED FOR SAFETY
--- NOTE | 2019-08-06 06:00 | NUR ---
SLEPT THROUGHOUT NIGHT WITH NO DISTRESS NOTED. RESPIRATIONS EASY. CALL LIGHT WITHIN REACH. NO VOICED COMPLAINTS THIS SHIFT
[2019-08-06 06:12] LABS: BASO # 0.1 10*3/uL (0.0-0.1); BASO % 0.7 % (0.0-1.0); EOS # 0.3 10*3/uL (0.0-0.4); EOS % 3.6 % (1.0-4.0); HEMATOCRIT 41.8 % (37.0-47.0); HEMOGLOBIN 13.2 g/dl (12.0-16.0); LYMPH % 35.2 % (27.0-41.0); MEAN CELL VOLUME 98.4 fl (81.0-99.0); MEAN CORPUSCULAR HGB 31.1 pg (27.0-31.0); MEAN CORPUSCULAR HGB CONC 31.6 g/dl (33.0-37.0); MEAN PLATELET VOLUME 9.5 fl (9.6-12.3); MONO # 0.7 10*3/uL (0.1-1.0); MONO % 8.7 % (3.0-9.0); NEUT # 4.3 10*3/uL (2.3-7.9); NEUT % 51.4 % (47.0-73.0); PLATELET COUNT AUTOMATED 315 10*3/uL (130-400); RED BLOOD COUNT 4.25 10*6/uL (4.10-5.10); RED CELL DISTRI WIDTH 13.5 % (0-14.5); WHITE BLOOD COUNT 8.4 10*3/uL (4.8-10.8)
[2019-08-06 06:26] LABS: BUN 10 mg/dl (7-24); CHLORIDE 106 mmol/L (98-107); POTASSIUM 4.2 mmol/L (3.5-5.1); SODIUM 138 mmol/L (136-145)
[2019-08-06 08:00] VITALS: BP 122/55
--- NOTE | 2019-08-06 08:19 | NUR ---
EXECUTIVE KITCHEN MANAGER spoke with the patient about SNF. Patient stated that she wants to go home. EXECUTIVE KITCHEN MANAGER asked the patient if she would like [facility]. Patient refused. When medically stable patient will return home. -BETHANIE Byers
[2019-08-06 12:00] VITALS: BP 134/57
[2019-08-06 16:00] VITALS: BP 135/42
[2019-08-06 20:00] VITALS: BP 143/60
--- NOTE | 2019-08-06 22:10 | NUR ---
RESTORIL GIVEN PER PATIENT REQUEST FOR COMPLAINTS OF INSOMNIA. WILL ASSESS EFFECTIVENESS.
--- NOTE | 2019-08-06 23:44 | NUR ---
RESTORIL EFFECTIVE. PATIENT SLEEPING. NO SIGNS OR SYMPTOMS OF DISTRESS. CALL LIGHT WITHIN REACH.
[2019-08-07] VITALS: BP 172/42
--- NOTE | 2019-08-07 00:29 | NUR ---
Patient resting quietly with no c/o discomfort. Respirations easy and regular. Vital signs stable. No overt distress. BI KRISHNAMURTHY
--- NOTE | 2019-08-07 00:30 | NUR ---
PATIENT'S BED ALARM WENT OFF. WHEN I ENTERED ROOM SHE SAID SHE WAS TRYING TO GET UP SO SHE COULD SIT ON THE EDGE OF HER BED BECAUSE HER SHOULDERS WERE ACHY. SHE THEN ASKED IF SHE WAS IN A NEW ROOM BECAUSE HER ROOM "DIDN'T LOOK THE SAME THE LAST ONE" SHE WAS IN. I TOLD HER SHE WAS IN THE SAME ROOM AND SHE SAID OK AND ASKED IF ID HELP HER LAY BACK IN BED. 10 MINUTES AFTER GETTING HER BACK IN BED SHE PUT HER CALL LIGHT ON AND SAID SHE HEARD SOMEONE KNOCKING ON THE WALL BEHIND HER BED. WHEN I WENT INTO THE ROOM SHE STATED SHE DID NOT HEAR THE KNOCKING ANYMORE, SHE ONLY HEARD IT ONCE. WILL CONTINUE TO MONITOR THE PATIENT.
--- NOTE | 2019-08-07 02:26 | NUR ---
PATIENT ASLEEP. NO SIGNS OR SYMPTOMS OF DISTRESS NOTED. CALL LIGHT WITHIN REACH. WILL CONTINUE TO MONITOR.
[2019-08-07 08:00] VITALS: BP 134/44
[2019-08-07 11:50] VITALS: BP 142/52
[2019-08-07] MEDS ORDERED: LOSARTAN POTASS50 M1 PO (12:45)
[2019-08-07] MEDS ORDERED: MIRTAZAPINE15 M2 PO (12:45)
--- NOTE | 2019-08-07 13:01 | NUR ---
PT CONITNUES TO DENY NEEDS AT HOME. REFUSES HOME HEALTH AND SNF. WILL CONTINUE TO FOLLOW.
--- NOTE | 2019-08-07 16:31 | NUR ---
PT DISCHARGED HOME VIA PRIVATE VEHICLE AT THIS TIME. WHEELCHAIR UTILIZED. PIERCE RIOS. DISCHARGE INSTRUCTIONS REVIEWED.
== END 2019-08-07 16:31 | disposition home or self-care (01) | DRG 948 ==
LOC: ED 19:43 → EDHOLD 08-04 00:01 → 5E 08-04 00:01
PROVIDERS: Emergency Medicine Emergency Medical Services; Internal Medicine; Student in an Organized Health Care Education/Training Program; ADMIT Family Medicine
DX: R53.1 Weakness (principal); I50.32 Chronic diastolic (congestive) heart failure; I13.0 Hypertensive heart and chronic kidney disease with heart failure and stage 1 through stage 4 chronic kidney disease, or unspecified chronic kidney disease; F33.9 Major depressive disorder, recurrent, unspecified; R63.0 Anorexia; G20 Parkinson's disease; K21.9 Gastro-esophageal reflux disease without esophagitis; E86.0 Dehydration; F02.80 Dementia in other diseases classified elsewhere, unspecified severity, without behavioral disturbance, psychotic disturbance, mood disturbance, and anxiety; N18.3 Chronic kidney disease, stage 3 (moderate); E03.9 Hypothyroidism, unspecified; M15.0 Primary generalized (osteo)arthritis; M79.7 Fibromyalgia; K58.9 Irritable bowel syndrome, unspecified; F41.9 Anxiety disorder, unspecified; E66.3 Overweight; Z96.651 Presence of right artificial knee joint; G47.00 Insomnia, unspecified; G47.33 Obstructive sleep apnea (adult) (pediatric); R00.0 Tachycardia, unspecified; R73.9 Hyperglycemia, unspecified; N28.1 Cyst of kidney, acquired; K86.89 Other specified diseases of pancreas; Z88.2 Allergy status to sulfonamides; Z88.0 Allergy status to penicillin; Z88.5 Allergy status to narcotic agent; Z88.8 Allergy status to other drugs, medicaments and biological substances; Z88.4 Allergy status to anesthetic agent; Z86.73 Personal history of transient ischemic attack (TIA), and cerebral infarction without residual deficits; Z90.49 Acquired absence of other specified parts of digestive tract; Z90.711 Acquired absence of uterus with remaining cervical stump; Z98.51 Tubal ligation status; Z82.49 Family history of ischemic heart disease and other diseases of the circulatory system; Z80.0 Family history of malignant neoplasm of digestive organs; Z83.3 Family history of diabetes mellitus; Z82.0 Family history of epilepsy and other diseases of the nervous system; Z79.82 Long term (current) use of aspirin; Z79.899 Other long term (current) drug therapy; Z68.27 Body mass index [BMI] 27.0-27.9, adult

== ENCOUNTER 2019-08-20 14:18 | Emergency (ER) | payer OTHER ==
[~2019-08-20] VITALS: Ht 157.4 cm; Wt 68.0 kg
[~2019-08-20 14:18] MED LIST changes: +ASPIRIN CHEWABL81 MG PO; +BACLOFEN5 MG PO; +DULOXETINE HCL20 MG PO; +LOSARTAN POTASS50 M1 PO; +MIRTAZAPINE15 M2 PO; +OMEPRAZOLE MAGN20 MG PO; +ONDANSETRON HYDR4 MG PO
[2019-08-20 14:50] LABS: BILIRUBIN NEGATIVE (NEGATIVE); BLOOD NEGATIVE (NEGATIVE); CLARITY SL CLOUDY (CLEAR); COLOR YELLOW (YELLOW); GLUCOSE NEGATIVE (NEGATIVE); KETONE NEGATIVE (NEGATIVE); LEUKO ESTERASE 1+ (NEGATIVE); NITRITE NEGATIVE (NEGATIVE); UROBILINOGEN 0.2 E.U./dl (0.2-1.0)
[2019-08-20 14:55] LABS: BACTERIA 2+; MUCOUS TRACE; RBC 0-2 rbc/hpf (0-2); WBC 21-30 wbc/hpf (0-5)
[2019-08-20 14:58] LABS: BASO % 0.4 % (0.0-1.0); EOS # 0.1 10*3/uL (0.0-0.4); EOS % 1.4 % (1.0-4.0); HEMATOCRIT 42.8 % (37.0-47.0); HEMOGLOBIN 13.8 g/dl (12.0-16.0); LYMPH # 3.4 10*3/uL (1.3-4.4); LYMPH % 43.9 % (27.0-41.0); MEAN CELL VOLUME 98.4 fl (81.0-99.0); MEAN CORPUSCULAR HGB 31.7 pg (27.0-31.0); MEAN CORPUSCULAR HGB CONC 32.2 g/dl (33.0-37.0); MEAN PLATELET VOLUME 9.4 fl (9.6-12.3); MONO # 0.5 10*3/uL (0.1-1.0); MONO % 6.7 % (3.0-9.0); NEUT # 3.7 10*3/uL (2.3-7.9); NEUT % 47.2 % (47.0-73.0); PLATELET COUNT AUTOMATED 287 10*3/uL (130-400); RED BLOOD COUNT 4.35 10*6/uL (4.10-5.10); RED CELL DISTRI WIDTH 13.4 % (0-14.5); WHITE BLOOD COUNT 7.7 10*3/uL (4.8-10.8)
[2019-08-20 15:08] LABS: ACT PARTIAL THROMBO TIME 23.8 SECONDS (20.0-32.1); INTERNATIONAL NORM RATIO 0.9 (2.0-3.5)
[2019-08-20 15:14] LABS: ALBUMIN 3.1 gm/dl (3.1-4.5); ALKALINE PHOSPHATASE 47 U/L (45-117); BUN 19 mg/dl (7-24); CHLORIDE 115 mmol/L (98-107); CREATININE 0.93 mg/dL (0.55-1.02); LIPASE 43 U/L (73-393); POTASSIUM 4.5 mmol/L (3.5-5.1); SGOT/AST 9 IU/L (3-35); SGPT/ALT 7 U/L (12-78); SODIUM 147 mmol/L (136-145)
[2019-08-20 17:22] VITALS: BP 166/62
[2019-08-20] MEDS ORDERED: AMINOPHYLLIN200 MG PO (17:35)
== END 2019-08-20 18:00 | disposition home or self-care (01) ==
LOC: ED 14:18
PROVIDERS: Nurse Practitioner Family
DX: N39.0 Urinary tract infection, site not specified (principal); I13.0 Hypertensive heart and chronic kidney disease with heart failure and stage 1 through stage 4 chronic kidney disease, or unspecified chronic kidney disease; N18.3 Chronic kidney disease, stage 3 (moderate); I50.32 Chronic diastolic (congestive) heart failure; F03.90 Unspecified dementia, unspecified severity, without behavioral disturbance, psychotic disturbance, mood disturbance, and anxiety; E03.9 Hypothyroidism, unspecified; K21.9 Gastro-esophageal reflux disease without esophagitis; M79.7 Fibromyalgia; Z88.0 Allergy status to penicillin; Z88.2 Allergy status to sulfonamides; Z88.8 Allergy status to other drugs, medicaments and biological substances; Z79.899 Other long term (current) drug therapy; Z79.82 Long term (current) use of aspirin

== ENCOUNTER 2020-02-10 19:08 | Emergency (ER) | payer OTHER ==
[~2020-02-10 19:08] MED LIST changes: +AMINOPHYLLIN200 MG PO
[2020-02-10 19:30] VITALS: BP 163/86
[2020-02-10 20:07] LABS: BACTERIA 3+; BILIRUBIN NEGATIVE (NEGATIVE); BLOOD 1+ (NEGATIVE); CLARITY SL CLOUDY (CLEAR); COLOR YELLOW (YELLOW); EPITHELIAL CELLS 21-30; GLUCOSE NEGATIVE (NEGATIVE); KETONE NEGATIVE (NEGATIVE); LEUKO ESTERASE 2+ (NEGATIVE); NITRITE POSITIVE (NEGATIVE); UROBILINOGEN 0.2 E.U./dl (0.2-1.0); WBC 16-20 wbc/hpf (0-5)
[2020-02-10] MEDS ORDERED: LEVOFLOXACIN500 MG PO (20:27)
== END 2020-02-10 20:36 | disposition home or self-care (01) ==
LOC: ED 19:08
PROVIDERS: Physician Assistant
DX: N39.0 Urinary tract infection, site not specified (principal); M19.90 Unspecified osteoarthritis, unspecified site; M79.7 Fibromyalgia; I50.9 Heart failure, unspecified; Z88.0 Allergy status to penicillin; Z88.2 Allergy status to sulfonamides; Z88.8 Allergy status to other drugs, medicaments and biological substances; Z79.899 Other long term (current) drug therapy; Z79.82 Long term (current) use of aspirin

== ENCOUNTER 2022-08-17 19:57 | Emergency (ER) | payer MEDICARE ==
[~2022-08-17] VITALS: Ht 165.1 cm; Wt 63.5 kg
[~2022-08-17 19:57] MED LIST changes: +LEVOFLOXACIN500 MG PO
[2022-08-17 20:19] LABS: BASO % 0.5 % (0.0-1.0); EOS # 0.1 10*3/uL (0.0-0.4); EOS % 1.3 % (1.0-4.0); HEMATOCRIT 43.2 % (37.0-47.0); LYMPH % 46.6 % (27.0-41.0); MEAN CELL VOLUME 94.3 fl (81.0-99.0); MEAN CORPUSCULAR HGB 30.8 pg (27.0-31.0); MEAN CORPUSCULAR HGB CONC 32.6 g/dl (33.0-37.0); MEAN PLATELET VOLUME 9.4 fl (9.6-12.3); MONO # 0.6 10*3/uL (0.1-1.0); MONO % 6.3 % (3.0-9.0); NEUT # 3.9 10*3/uL (2.3-7.9); PLATELET COUNT AUTOMATED 276 10*3/uL (130-400); RED BLOOD COUNT 4.58 10*6/uL (4.10-5.10); WHITE BLOOD COUNT 8.7 10*3/uL (4.8-10.8)
[2022-08-17 20:34] LABS: ALKALINE PHOSPHATASE 62 U/L (46-116); BUN 22 mg/dl (9-23); CHLORIDE 106 mmol/L (98-107); CREATININE 1.09 mg/dL (0.55-1.02); POTASSIUM 4.1 mmol/L (3.4-5.1); TOTAL PROTEIN 5.9 gm/dL (6.0-8.0)
[2022-08-17 20:35] LABS: ACT PARTIAL THROMBO TIME 22.6 SECONDS (20.0-32.1)
[2022-08-17 20:41] LABS: SGPT/ALT < 7 U/L (10-49)
[2022-08-18] MEDS ORDERED: ZESTRIL5 MG PO (00:10)
[2022-08-18] MEDS ORDERED: CELEBREX100 MG PO (00:11)
[2022-08-18] MEDS ORDERED: TRAMADOL HCL50 MG PO (00:13)
[2022-08-18 04:30] VITALS: BP 119/46
== END 2022-08-18 06:13 | disposition home or self-care (01) ==
LOC: ED 19:57
PROVIDERS: Internal Medicine
DX: I71.20 Thoracic aortic aneurysm, without rupture, unspecified (principal); N18.31 Chronic kidney disease, stage 3a; I50.9 Heart failure, unspecified; M19.90 Unspecified osteoarthritis, unspecified site; Z88.0 Allergy status to penicillin; Z88.2 Allergy status to sulfonamides; Z88.8 Allergy status to other drugs, medicaments and biological substances; Z79.899 Other long term (current) drug therapy; Z90.49 Acquired absence of other specified parts of digestive tract; Z90.710 Acquired absence of both cervix and uterus; Z98.890 Other specified postprocedural states